=== PATIENT | male | born 1990 | race Caucasian/White ===

== ENCOUNTER 2024-07-21 07:03 | Emergency (ER) | payer OTHER, SELFPAY ==
[2024-07-21] VITALS (11 sets, daily range): BP systolic 114–137; BP diastolic 53–91; PULSE 66–103; RESP 16–20; TEMP 36.6–37; O2SAT 97–100; BMI 28.6
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
[2024-07-21 07:26] LABS: Add Manual Diff / Slide Review NO; Basophils Absolute Auto 0 /uL (0-100); Basophils Percent Auto 0.9 % (0-2); Eosinophils Absolute Auto 200 /uL (0-450); Hematocrit 39.4 % (36-46); Hemoglobin 12.9 g/dL (12.0-16.0); Lymphocytes Absolute Auto 1700 /uL (1100-4500); Lymphocytes Percent Auto 29.9 % (25-40); Mean Corpuscular HGB Conc 32.7 % (30-36); Mean Corpuscular Hemoglobin 27.2 PG (26-34); Mean Corpuscular Volume 83.2 fL (80-100); Monocytes Absolute Auto 400 /uL (0-900); Monocytes Percent Auto 7.5 % (3-14); Neutrophils Absolute Auto 3300 /uL (1500-7000); Neutrophils Percent Auto 58.7 % (50-75); Platelet Count 261 X10^3/uL (150-400); Red Blood Cell Count 4.74 X10^6/uL (4.0-5.2); Red Cell Distribution Width 16.1 % (11.6-14.8); White Blood Cell Count 5.6 X10^3/uL (4.5-11.0)
[2024-07-21] MEDS: HYDROMORPHONE 0.5 MG INJ IV ×2 (07:28→08:32)
[2024-07-21 07:34] LABS: Prothrombin Time 11.4 SECONDS (9.4-12.5)
[2024-07-21 07:41] LABS: Alanine Aminotransferase 27 IU/L (<35); Albumin 4.4 g/dL (3.5-5.0); Albumin Globulin Ratio 1.6 (1.0-2.8); Alkaline Phosphatase 77 U/L (38-126); Aspartate Aminotransferase 32 IU/L (14-36); BUN Creatinine Ratio 26.4 (6-22); Bilirubin Total 0.7 mg/dL (0.2-1.3); Blood Urea Nitrogen 19 mg/dL (7-17); Calcium 8.8 mg/dL (8.4-10.2); Carbon Dioxide 25 mmol/L (22-32); Chloride 104 mmol/L (98-107); Estimated Glomerular Filt Rate > 60 mL/min (>60); Ethanol (ETOH) < 10 mg/dL; Globulin 2.8 g/dL (1.7-4.1); Glucose 115 mg/dL (70-100); HEMOLYSIS 29 (0-50); Lipase 51 U/L (23-300); Potassium 3.8 mmol/L (3.4-5.1); Sodium 136 mmol/L (137-145); Total Protein 7.2 g/dL (6.3-8.2)
[2024-07-21 07:45] LABS: PTT Partial Thromboplastin Tim 33 SECONDS (25.1-36.5)
[2024-07-21] MEDS: OXYCODONE/ACETAMINOPHEN 5/325 TABLET 1 TAB PO (10:01)
[2024-07-21] MEDS: KETOROLAC 30 MG/ML VIAL 15 MG IV (10:02)
--- NOTE | 2024-07-21 10:08 | PC.NURSE ---
Addendum entered by Sara Sam R.N. 07/21/24 10:25: Pt denies HI/SI at this time. Original Note: Registration attempted to ask pt personal demographic information like name, preferred name, sex and address. Pt became evasive and defensive and stated that it didn't matter if they identified as male or female. RN explained to pt that we support pt's gender identity, but it is also necessary to know pt's sex in order to provide the most culturally appropriate/competent care. Pt apologized for becoming angry with staff members and looked off into distance and began speaking to someone that was not currently in the room. RN asked pt if they were seeing or hearing things. Pt endorsed auditory hallucinations and reported that they hear them often. Pt expresses concerns about being able to care for self after dc due to anxiety and depression issues and is open to inpatient or outpatient treatment for mental health issues. Pt overall demeanour anxious and wary of ED staff. TERRAZZO POLISHER consult ordered & tray from dietary ordered. Pt requested that we wait to place walking boot until just prior to dc. Declined sutures on nose lac and requested glue instead. Dr Banks aware.
[2024-07-21] MEDS: BACITRACIN OINT 0.9 GM PCKT 1 APPLIC TOP (12:14)
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
== END 2024-07-21 12:57 | disposition home or self-care (01) ==
PROVIDERS: Emergency Provider Emergency Medicine
DX: S01.21XA Laceration without foreign body of nose, initial encounter (principal); S00.81XA Abrasion of other part of head, initial encounter; S93.401A Sprain of unspecified ligament of right ankle, initial encounter; V89.9XXA Person injured in unspecified vehicle accident, initial encounter; S30.811A Abrasion of abdominal wall, initial encounter; S00.31XA Abrasion of nose, initial encounter
CPT/HCPCS: 36415; 70450; 71275; 72125; 73610; 74177; 80053; 80320; 83690; 85025; 85610; 85730; 96374; 96375; 96376; 99285; 99291; G0390; J1171; J1885; Q9967

== ENCOUNTER 2024-07-21 21:20 | Emergency (ER) | payer OTHER, SELFPAY ==
[2024-07-21 21:33] VITALS: BP 147/66; PULSE 81; RESP 18; TEMP 36.6; O2SAT 97
--- NOTE | 2024-07-21 21:46 | PC.NURSE ---
Printed resources for patient given: pamphlet for Care Crisis, Housing Resources, and Community Resources. Pt states that she does not have a stable phone but wanted to have follow up. At this time with limited contact information patient will be given printed material that includes phone numbers for her to follow up with.
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
--- NOTE | 2024-07-21 22:22 | PC.NURSE ---
Pt instructed to wash hands with soap and water then massage soap and water with finger into wound on nose. Pt states Is this some kind of ER self service thing or something? Explained to patient that this is the best way to clean the wound and she would be doing it at home, there is no reason for someone to do it for her here.
--- NOTE | 2024-07-21 22:25 | PC.NURSE ---
Pt continues to stay in Ed stretcher not getting up to wash nose as instructed.
--- NOTE | 2024-07-21 22:26 | PC.NURSE ---
Pt continues to stay in ED stretcher not getting up to wash wound, closes eyes and becomes slow to arouse as when RN first entered exam room.
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
== END 2024-07-21 22:43 | disposition home or self-care (01) ==
PROVIDERS: Emergency Provider Emergency Medicine
DX: S01.21XA Laceration without foreign body of nose, initial encounter (principal); V09.9XXA Pedestrian injured in unspecified transport accident, initial encounter; F10.129 Alcohol abuse with intoxication, unspecified
CPT/HCPCS: 99281; 99283

== ENCOUNTER 2024-07-28 09:50 | Emergency (ER) | payer OTHER, MEDICAID, SELFPAY ==
[2024-07-28 10:03] VITALS: BP 136/66; PULSE 87; RESP 14; TEMP 36.6; O2SAT 98; BMI 24.3
--- NOTE | 2024-07-28 11:21 | ED.RECABL ---
HPI - Recheck/Abnormal Lab/Rx <Jaja Gunter PA-C - Last Filed: 07/28/24 13:18> General Chief Complaint: Recheck/Abnormal Lab/Rx Stated Complaint: needs medication Time Seen by Provider: 07/28/24 11:21 Mode of arrival: Ambulatory History of Present Illness HPI narrative: Keyanna Lopez is a 34 year old male to female transgender patient who presents to the emergency room for medication refills. Patient states she is new to the area and no longer has a local primary care provider. She has been getting prescribed estradiol 2 mg (4 mg p.o. b.i.d.) and spironolactone 100 mg (200 mg b.i.d.) from her doctor in [place] at [facility]. Patient states she has been these medications for about 7 years. She ran out of them about 1-2 weeks ago and is looking for refills until she can find a doctor in the area. She has no other concerns. Related Data Previous Rx's Medication Instructions Recorded estradiol 2 mg tablet 4 mg (2 x 2 mg) PO BID 30 days 07/28/24 #120 tabs spironolactone 100 mg tablet 200 mg (2 x 100 mg) PO BID 30 days 07/28/24 #120 tabs Allergies Allergy/AdvReac Type Severity Reaction Status Date / Time No Known Drug Allergies Allergy Verified 07/28/24 10:03 Review of Systems <Jaja Gunter PA-C - Last Filed: 07/28/24 13:18> Review of Systems ROS Unobtainable: All systems reviewed & are unremarkable except as noted in HPI and below Patient History <Jaja Gunter PA-C - Last Filed: 07/28/24 13:18> Medical History Transgender female Social History Smoking Status: Current every day smoker Smoking Status: Current every day smoker tobacco type: cigarettes alcohol intake frequency: a few times a month Exam <Jaja Gunter PA-C - Last Filed: 07/28/24 13:18> Narrative Exam Narrative: GENERAL: 34 year old patient appears stated age. Well-developed patient, in no acute distress. HEAD: Atraumatic. Normocephalic. EYES: Extraocular motions intact. No scleral icterus. No injection or drainage. ENT: Nose with scabbing on left side of bridge. NECK: Trachea midline. Cervical ROM intact. CARDIOVASCULAR: Regular rate and rhythm. RESPIRATORY: ?Nonlabored respirations. ?Speaking in clear, full sentences. ?Clear to auscultation. Breath sounds equal bilaterally. No wheezes, rales, or rhonchi. ? EXTREMITIES: No edema NEURO: AOx3. ?Clear speech. ?Moves all 4 extremities appropriately. Initial Vital Signs Initial Vital Signs: Vital Signs Temperature 97.8 F 07/28/24 10:03 Pulse Rate 87 07/28/24 10:03 Respiratory Rate 14 07/28/24 10:03 Blood Pressure 136/66 07/28/24 10:03 Pulse Oximetry 98 07/28/24 10:03 Oxygen Delivery Method Room Air 07/28/24 10:03 <Laurent Wall DO - Last Filed: 07/28/24 13:27> Initial Vital Signs Initial Vital Signs: Vital Signs Temperature 97.8 F 07/28/24 10:03 Pulse Rate 87 07/28/24 10:03 Respiratory Rate 14 07/28/24 10:03 Blood Pressure 136/66 07/28/24 10:03 Pulse Oximetry 98 07/28/24 10:03 Oxygen Delivery Method Room Air 07/28/24 10:03 Course <Jaja Gunter PA-C - Last Filed: 07/28/24 13:18> Orders Ordered: ED Orders 07/28/24 10:07 Consult to [facility] [place] - Amusement Ride Operator Stat Vital Signs Vital signs: Vital Signs - 8 hr 07/28/24 10:03 Temperature 97.8 F Pulse Rate 87 Respiratory Rate 14 Blood Pressure 136/66 Pulse Oximetry 98 Oxygen Delivery Method Room Air <Laurent Wall DO - Last Filed: 07/28/24 13:27> Orders Ordered: ED Orders 07/28/24 10:07 Consult to [facility] [place] - Amusement Ride Operator Stat Vital Signs Vital signs: Vital Signs - 8 hr 07/28/24 10:03 Temperature 97.8 F Pulse Rate 87 Respiratory Rate 14 Blood Pressure 136/66 Pulse Oximetry 98 Oxygen Delivery Method Room Air MDM - Recheck/Abnormal Lab/Rx <Jaja Gunter PA-C - Last Filed: 07/28/24 13:18> MDM Narrative Medical decision making narrative: 34 year old male to female transgender patient who presents to the emergency room for medication refills. Differential diagnosis includes but is not limited to medication refill, etc. On exam the patient is in no acute distress, nontoxic-appearing, all vital signs within normal limits. Confirmed with the patient's pharmacy history her requested prescriptions and that she likely just ran out of her last refill. She is requesting refill of estradiol and spironolactone. Doses of these medications confirmed with the patient and pharmacy history. We will send 1 month refill to local pharmacy, provide patient with local PCP follow up. Patient understands it is not appropriate to continue coming to the ER for medication refills. Patient verbalized understanding of all information stable for discharge. Discharge Plan Departure Patient Disposition: Home Clinical Impression: Encounter for medication refill Activity Restrictions/Additional Instructions: Today I have refilled your estradiol and spironolactone. It is very important to follow up with a local primary care doctor as the emergency room can not continue providing refills of medications. Your prescriptions have been sent to the [facility] and had a [facility]. Please follow up with your primary care doctor within the next 2-3 days for ER follow-up. (If you do not have a PCP you can call [phone]. ?to schedule an appointment with an [facility] Primary Care Provider) IF YOU DEVELOP ANY NEW OR WORSENING SYMPTOMS, RETURN TO THE ER! Please read the attached instructions, they highlight more specific treatments and interventions for you at home. Thank you for letting me participate in your care, Jaja Gunter PA-C Prescriptions: New estradiol 2 mg tablet 4 mg PO BID 30 Days Qty: 120 0RF spironolactone 100 mg tablet 200 mg PO BID 30 Days Qty: 120 0RF Referrals: Miscellaneous,Doctor, MD [Primary Care Provider] - Stand Alone Forms: Patient Portal/API/Survey ED Sign-out <Laurent Wall, DO - Last Filed: 07/28/24 13:27> Cosign ED Attending Cosignature Attestation: Dr Wall Co-Sign Statement: I was available for consultation during this patient's emergency department visit. This chart is signed by myself for administrative purposes only. I did not have direct contact with this patient during this visit. They were seen independently by the APC.
== END 2024-07-28 12:26 | disposition home or self-care (01) ==
PROVIDERS: Emergency Provider Physician Assistant
DX: Z76.0 Encounter for issue of repeat prescription (principal)
CPT/HCPCS: 99281

== ENCOUNTER 2024-08-06 17:41 | Emergency (ER) | payer OTHER, SELFPAY ==
[2024-08-06 17:50] VITALS: BP 149/80; PULSE 84; RESP 16; TEMP 36.7; O2SAT 98; BMI 29.5
== END 2024-08-06 18:37 | disposition left against medical advice (07) ==
PROVIDERS: Emergency Provider Emergency Medicine
DX: M21.969 Unspecified acquired deformity of unspecified lower leg (principal)
CPT/HCPCS: 99281

== ENCOUNTER 2024-08-10 15:17 | Emergency (ER) | payer OTHER, SELFPAY ==
[2024-08-10 15:35] VITALS: BP 151/98; PULSE 85; RESP 20; TEMP 36.9; O2SAT 98; BMI 24.3
[2024-08-10 16:13] LABS: Add Manual Diff / Slide Review NO; Basophils Absolute Auto 0 /uL (0-100); Basophils Percent Auto 0.6 % (0-2); Eosinophils Absolute Auto 100 /uL (0-450); Eosinophils Percent Auto 1.1 % (2-4); Hematocrit 38.8 % (36-46); Hemoglobin 12.8 g/dL (12.0-16.0); Lymphocytes Absolute Auto 1800 /uL (1100-4500); Lymphocytes Percent Auto 25.5 % (25-40); Mean Corpuscular HGB Conc 33.1 % (30-36); Mean Corpuscular Volume 84.4 fL (80-100); Monocytes Absolute Auto 600 /uL (0-900); Monocytes Percent Auto 7.8 % (3-14); Neutrophils Absolute Auto 4700 /uL (1500-7000); Platelet Count 287 X10^3/uL (150-400); Red Blood Cell Count 4.59 X10^6/uL (4.0-5.2); Red Cell Distribution Width 15.3 % (11.6-14.8); White Blood Cell Count 7.2 X10^3/uL (4.5-11.0)
[2024-08-10 16:17] LABS: COVID19 -Nasal RAPID Negative (Negative)
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
[2024-08-10 16:33] LABS: Acetaminophen < 10 ug/mL (10-30); Alanine Aminotransferase 21 IU/L (<35); Albumin 4.3 g/dL (3.5-5.0); Albumin Globulin Ratio 1.6 (1.0-2.8); Alkaline Phosphatase 66 U/L (38-126); Aspartate Aminotransferase 29 IU/L (14-36); BUN Creatinine Ratio 21.7 (6-22); Bilirubin Total 0.4 mg/dL (0.2-1.3); Blood Urea Nitrogen 18 mg/dL (7-17); Calcium 8.9 mg/dL (8.4-10.2); Carbon Dioxide 23 mmol/L (22-32); Chloride 105 mmol/L (98-107); Estimated Glomerular Filt Rate > 60 mL/min (>60); Ethanol (ETOH) < 10 mg/dL; Globulin 2.7 g/dL (1.7-4.1); Glucose 95 mg/dL (70-100); HEMOLYSIS < 15 (0-50); Potassium 4.2 mmol/L (3.4-5.1); Salicylate < 1.0 mg/dL (<20); Sodium 136 mmol/L (137-145)
[2024-08-10 16:47] LABS: Ur Creatinine Normal (Normal); Ur Specific Gravity Normal (Normal); Urine Cocaine Negative (Negative); Urine Opiates Positive (Negative); Urine THC Negative (Negative); Urine pH Normal (Normal)
[2024-08-10 16:48] LABS: Urine Amphetamines Negative (Negative); Urine Barbiturates Negative (Negative); Urine Benzodiazepines Negative (Negative); Urine MDMA Negative (Negative); Urine Methadone Negative (Negative); Urine Methamphetamines Negative (Negative); Urine Oxycodone Negative (Negative); Urine Phencyclidine Negative (Negative); Urine Tricyclic Antidepressant Negative (Negative)
[2024-08-10 16:49] LABS: Free T4, Direct Thyroxine 1.03 ng/dL (0.78-2.19)
[2024-08-10 17:03] LABS: Thyroid Stimulating Hormone 1.05 uIU/mL (0.47-4.68)
--- NOTE | 2024-08-10 17:09 | CM.SWNOTE ---
Addendum entered by Maria Esther Cormier 08/10/24 18:26: ED BOAT BUILDER AND REPAIRER Note BOAT BUILDER AND REPAIRER receives call from [facility], it is reported that patient is accepted by [facility], received call from Jennifer. It is reported that patient can arrive any time, Nurse to Nurse: [phone]. BOAT BUILDER AND REPAIRER calls [facility] and sets up BLS transport for 1909. BOAT BUILDER AND REPAIRER informs patient of this and patient indicates agreement and understanding. Plan: patient to transfer to [facility] via S this evening VIN Liang Original Note: ED BOAT BUILDER AND REPAIRER Note Patient endorses preference not to go to [facility] and to go to [facility]. BOAT BUILDER AND REPAIRER calls [facility], it is reported that they do not have beds. BOAT BUILDER AND REPAIRER reviews this with patient and endorses that [place]. BOAT BUILDER AND REPAIRER calls [facility], it is reported that they have beds. BOAT BUILDER AND REPAIRER to fax clinicals for review when patient is medically clear. VIN Liang
--- NOTE | 2024-08-10 17:32 | ED.PSYCH ---
HPI - Psych <Jaja Gunter PA-C - Last Filed: 08/10/24 18:53> General Chief Complaint: Psychiatric Symptoms Stated Complaint: needs psych help Time Seen by Provider: 08/10/24 17:32 Source: patient Mode of arrival: Ambulatory History of Present Illness HPI Narrative: Ms. Law Vieira) is a 34-year-old transgender female (male to female) on estradiol and spironolactone with a past medical history of reported bipolar disorder who presents to the emergency department for suicidal ideation. Patient states today she had and plans of harming herself by jumping in front of a car or staying outside so she would freeze to . Patient denies any homicidal ideations. She denies any medication or drug use prior to arrival except for her daily estradiol and spironolactone. Denies any attempted self-harm or suicide prior to arrival. She came to the ER to seek help to prevent her from harming herself. She denies any pain or flu-like symptoms at this time. Admits to vaping but denies drug or alcohol use. Related Data Previous Rx's Medication Instructions Recorded estradiol 2 mg tablet 4 mg (2 x 2 mg) PO BID 30 days 07/28/24 #120 tabs spironolactone 100 mg tablet 200 mg (2 x 100 mg) PO BID 30 days 07/28/24 #120 tabs Allergies Allergy/AdvReac Type Severity Reaction Status Date / Time No Known Drug Allergies Allergy Verified 07/28/24 10:03 Review of Systems <Jaja Gunter PA-C - Last Filed: 08/10/24 18:53> Review of Systems ROS Unobtainable: All systems reviewed & are unremarkable except as noted in HPI and below Patient History <Jaja Gunter PA-C - Last Filed: 08/10/24 18:53> Medical History Transgender female Social History Smoking Status: Current every day smoker Smoking Status: Current every day smoker tobacco type: vaping alcohol intake frequency: a few times a month Exam <Jaja Gunter PA-C - Last Filed: 08/10/24 18:53> Narrative Exam Narrative: GENERAL: 34 year old patient appears stated age. Well-developed patient, in no acute distress. HEAD: Atraumatic. Normocephalic. NECK: Trachea midline. Cervical ROM intact. CARDIOVASCULAR: Regular rate and rhythm. RESPIRATORY: ?Nonlabored respirations. ?Speaking in clear, full sentences. ?Clear to auscultation. Breath sounds equal bilaterally. No wheezes, rales, or rhonchi. ? EXTREMITIES: No edema or joint tenderness. NEURO: AOx3. ?Clear speech. ?Moves all 4 extremities appropriately. MENTAL STATUS: ADMITS TO SUICIDAL IDEATION AND PLAN. SKIN: No rash or erythema of visible areas Initial Vital Signs Initial Vital Signs: Vital Signs Temperature 98.4 F 08/10/24 15:35 Pulse Rate 85 08/10/24 15:35 Respiratory Rate 20 08/10/24 15:35 Blood Pressure 151/98 H 08/10/24 15:35 Pulse Oximetry 98 08/10/24 15:35 Oxygen Delivery Method Room Air 08/10/24 15:35 <Isacc Patrick MD - Last Filed: 08/10/24 20:50> Initial Vital Signs Initial Vital Signs: Vital Signs Temperature 98.4 F 08/10/24 15:35 Pulse Rate 85 08/10/24 15:35 Respiratory Rate 20 08/10/24 15:35 Blood Pressure 151/98 H 08/10/24 15:35 Pulse Oximetry 98 08/10/24 15:35 Oxygen Delivery Method Room Air 08/10/24 15:35 Course <Jaja Gunter PA-C - Last Filed: 08/10/24 18:53> Orders Ordered: ED Orders 08/10/24 15:42 Consult to [employer] - [employer] Stat 08/10/24 15:50 Urine Drug Screen, Rapid Stat 08/10/24 15:55 COVID19 -Nasal RAPID Stat 08/10/24 16:03 Acetaminophen Stat Complete Blood Count AUTO DIFF Stat Comprehensive Metabolic Panel Stat Ethanol (ETOH) Stat Free T4, Direct Thyroxine Stat Salicylate Stat Thyroid Stimulating Hormone Stat Vital Signs Vital signs: Vital Signs - 8 hr 08/10/24 15:35 08/10/24 19:08 Temperature 98.4 F 98.9 F Pulse Rate 85 66 Respiratory Rate 20 14 Blood Pressure 151/98 H 107/58 L Pulse Oximetry 98 98 Oxygen Delivery Method Room Air <Isacc Patrick MD - Last Filed: 08/10/24 20:50> Orders Ordered: ED Orders 08/10/24 15:42 [place] [facility] [place] [employer] Stat 08/10/24 15:50 Urine Drug Screen, Rapid Stat 08/10/24 15:55 COVID19 -Nasal RAPID Stat 08/10/24 16:03 Acetaminophen Stat Complete Blood Count AUTO DIFF Stat Comprehensive Metabolic Panel Stat Ethanol (ETOH) Stat Free T4, Direct Thyroxine Stat Salicylate Stat Thyroid Stimulating Hormone Stat Vital Signs Vital signs: Vital Signs - 8 hr 08/10/24 15:35 08/10/24 19:08 Temperature 98.4 F 98.9 F Pulse Rate 85 66 Respiratory Rate 20 14 Blood Pressure 151/98 H 107/58 L Pulse Oximetry 98 98 Oxygen Delivery Method Room Air MDM - Psych <Jaja Gunter PA-C - Last Filed: 08/10/24 18:53> Medical Records Attestation: I reviewed the patient's medical records. Lab Data 08/10/24 16:03 08/10/24 16:03 Labs: Lab Results 08/10/24 08/10/24 08/10/24 Range/Units 15:50 15:55 16:03 WBC 7.2 (4.5-11.0) X10^3/uL RBC 4.59 (4.0-5.2) X10^6/uL Hgb 12.8 (12.0-16.0) g/dL Hct 38.8 (36-46) % MCV 84.4 (80-100) fL MCH 28.0 (26-34) PG MCHC 33.1 (30-36) % RDW 15.3 H (11.6-14.8) % Plt Count 287 (150-400) X10^3/uL Neut % (Auto) 65.0 (50-75) % Lymph % (Auto) 25.5 (25-40) % [place] % (Auto) 7.8 (3-14) % Eos % (Auto) 1.1 L (2-4) % Baso % (Auto) 0.6 (0-2) % Neut # (Auto) 4700 (5965-3901) /uL Lymph # (Auto) 1800 (3729-6941) /uL [place] # (Auto) 600 (0-900) /uL Eos # (Auto) 100 (0-450) /uL Baso # (Auto) 0 (0-100) /uL Sodium 136 L (137-145) mmol/L Potassium 4.2 (3.4-5.1) mmol/L Chloride 105 (98-107) mmol/L Carbon Dioxide 23 (22-32) mmol/L BUN 18 H (7-17) mg/dL Creatinine 0.83 (0.52-1.04) mg/dL Estimated GFR > 60 (>60) mL/min BUN/Creatinine Ratio 21.7 (6-22) Glucose 95 (70-100) mg/dL Calcium 8.9 (8.4-10.2) mg/dL Total Bilirubin 0.4 (0.2-1.3) mg/dL AST 29 (14-36) IU/L ALT 21 (<35) IU/L Alkaline Phosphatase 66 (38-126) U/L Total Protein 7.0 (6.3-8.2) g/dL Albumin 4.3 (3.5-5.0) g/dL Globulin 2.7 (1.7-4.1) g/dL Albumin/Globulin Ratio 1.6 (1.0-2.8) TSH 1.05 (0.47-4.68) uIU/mL Free T4 1.03 (0.78-2.19) ng/dL Salicylates < 1.0 (<20) mg/dL U Opiates 300ng/mL cut Positive H (Negative) Ur Oxycodone Screen Negative (Negative) Urine Methadone Screen Negative (Negative) Acetaminophen < 10 (10-30) ug/mL Ur Barbiturates Screen Negative (Negative) U Tricyclic Antidepress Negative (Negative) Ur Phencyclidine Scrn Negative (Negative) Ur Amphetamines Screen Negative (Negative) U Methamphetamines Scrn Negative (Negative) Ur MDMA Scrn (Ecstasy) Negative (Negative) U Benzodiazepines Scrn Negative (Negative) Urine Cocaine Screen Negative (Negative) U Marijuana (THC) Screen Negative (Negative) Urine pH Normal (Normal) Urine Specific [place] Normal (Normal) Ethyl Alcohol < 10 ( - 10) mg/dL Ur Creatinine Normal (Normal) SARS-CoV-2 (PCR) Negative (Negative) Point of Care Testing Test Results Negative Urine Dip Bedside Urine Glucose Negative Bedside Urine Bilirubin - Negative Bedside Urine Ketone +/- 5 Urine Specific [place] 1.020 Bedside Urine Occult Blood - Negative Bedside Urine pH 6 Bedside Urine Protein - Negative Bedside Urine Urobilinogen - Negative Bedside Urine Nitrite - Negative Bedside Urine Leukocytes - Negative Esterase MDM Narrative Medical decision making narrative: 34-year-old transgender female (male to female) on estradiol and spironolactone with a past medical history of reported bipolar disorder who presents to the emergency department for suicidal ideation. DIFFERENTIAL DIAGNOSIS INCLUDES BUT IS NOT LIMITED TO suicidal ideation, depression, anxiety, psychosis, etc. On exam patient is in no acute distress, nontoxic appearing, vital signs appropriate. She is admitting to suicidal ideation with plan but did not attempt any self-harm. She is agreeing to voluntary admission for mental health evaluation. She has not aggressive at this time. Lungs clear to auscultation bilaterally. No apparent medical problem. We will obtain baseline psychiatry clearance workup. Labs reveal normal WBC count 7.2 hemoglobin 12.8 hematocrit 38.8. Sodium 136. BUN 18, creatinine 0.83. Potassium 4.2. Tox screen is positive for opiates. Patient is medically cleared and would benefit from inpatient psychiatric evaluation. Patient is agreeable to this plan. Patient is stable for transfer to mental health facility at this time. Risks and benefits of transfer discussed with the patient and she is agreeable. <Isacc Patrick MD - Last Filed: 08/10/24 20:50> Lab Data Labs: Lab Results 08/10/24 08/10/24 08/10/24 Range/Units 15:50 15:55 16:03 WBC 7.2 (4.5-11.0) X10^3/uL RBC 4.59 (4.0-5.2) X10^6/uL Hgb 12.8 (12.0-16.0) g/dL Hct 38.8 (36-46) % MCV 84.4 (80-100) fL MCH 28.0 (26-34) PG MCHC 33.1 (30-36) % RDW 15.3 H (11.6-14.8) % Plt Count 287 (150-400) X10^3/uL Neut % (Auto) 65.0 (50-75) % Lymph % (Auto) 25.5 (25-40) % [place] % (Auto) 7.8 (3-14) % Eos % (Auto) 1.1 L (2-4) % Baso % (Auto) 0.6 (0-2) % Neut # (Auto) 4700 (1789-8339) /uL Lymph # (Auto) 1800 (7952-2127) /uL [place] # (Auto) 600 (0-900) /uL Eos # (Auto) 100 (0-450) /uL Baso # (Auto) 0 (0-100) /uL Sodium 136 L (137-145) mmol/L Potassium 4.2 (3.4-5.1) mmol/L Chloride 105 (98-107) mmol/L Carbon Dioxide 23 (22-32) mmol/L BUN 18 H (7-17) mg/dL Creatinine 0.83 (0.52-1.04) mg/dL Estimated GFR > 60 (>60) mL/min BUN/Creatinine Ratio 21.7 (6-22) Glucose 95 (70-100) mg/dL Calcium 8.9 (8.4-10.2) mg/dL Total Bilirubin 0.4 (0.2-1.3) mg/dL AST 29 (14-36) IU/L ALT 21 (<35) IU/L Alkaline Phosphatase 66 (38-126) U/L Total Protein 7.0 (6.3-8.2) g/dL Albumin 4.3 (3.5-5.0) g/dL Globulin 2.7 (1.7-4.1) g/dL Albumin/Globulin Ratio 1.6 (1.0-2.8) TSH 1.05 (0.47-4.68) uIU/mL Free T4 1.03 (0.78-2.19) ng/dL Salicylates < 1.0 (<20) mg/dL U Opiates 300ng/mL cut Positive H (Negative) Ur Oxycodone Screen Negative (Negative) Urine Methadone Screen Negative (Negative) Acetaminophen < 10 (10-30) ug/mL Ur Barbiturates Screen Negative (Negative) U Tricyclic Antidepress Negative (Negative) Ur Phencyclidine Scrn Negative (Negative) Ur Amphetamines Screen Negative (Negative) U Methamphetamines Scrn Negative (Negative) Ur MDMA Scrn (Ecstasy) Negative (Negative) U Benzodiazepines Scrn Negative (Negative) Urine Cocaine Screen Negative (Negative) U Marijuana (THC) Screen Negative (Negative) Urine pH Normal (Normal) Urine Specific [place] Normal (Normal) Ethyl Alcohol < 10 ( - 10) mg/dL Ur Creatinine Normal (Normal) SARS-CoV-2 (PCR) Negative (Negative) Point of Care Testing Test Results Negative Urine Dip Bedside Urine Glucose Negative Bedside Urine Bilirubin - Negative Bedside Urine Ketone +/- 5 Urine Specific [place] 1.020 Bedside Urine Occult Blood - Negative Bedside Urine pH 6 Bedside Urine Protein - Negative Bedside Urine Urobilinogen - Negative Bedside Urine Nitrite - Negative Bedside Urine Leukocytes - Negative Esterase Discharge Plan Departure Patient Disposition: Xfer Psychiatric Hosp Clinical Impression: Suicidal ideation Prescriptions: No Action estradiol 2 mg tablet 4 mg PO BID 30 Days Qty: 120 0RF spironolactone 100 mg tablet 200 mg PO BID 30 Days Qty: 120 0RF Referrals: Miscellaneous,DoctorMD [Primary Care Provider] - ED Sign-out <Isacc Patrick MD - Last Filed: 08/10/24 20:50> Cosign ED Attending Cosignature Attestation: I was immediately available in the department for consultation. This documentation has been reviewed and I agree with assessment and plan. Supervised by Isacc Patrick MD
[2024-08-10 19:08] VITALS: BP 107/58; PULSE 66; RESP 14; TEMP 37.2; O2SAT 98
== END 2024-08-10 19:24 ==
PROVIDERS: Emergency Medicine; Emergency Provider Physician Assistant
DX: R45.851 Suicidal ideations (principal); F64.0 Transsexualism
CPT/HCPCS: 80053; 80305; 80320; 80329; 81003; 81025; 84439; 84443; 85025; 87635; 99284; 99285; G0480

== ENCOUNTER 2024-08-23 20:27 | Emergency (ER) | payer OTHER, SELFPAY ==
[2024-08-23 20:48] VITALS: BP 138/75; PULSE 72; RESP 18; TEMP 36.4; O2SAT 96
[2024-08-23 21:28] LABS: Add Manual Diff / Slide Review NO; Basophils Absolute Auto 100 /uL (0-100); Basophils Percent Auto 0.8 % (0-2); Eosinophils Absolute Auto 100 /uL (0-450); Eosinophils Percent Auto 1.4 % (2-4); Hematocrit 39.1 % (36-46); Hemoglobin 13.1 g/dL (12.0-16.0); Lymphocytes Absolute Auto 2100 /uL (1100-4500); Lymphocytes Percent Auto 25.4 % (25-40); Mean Corpuscular HGB Conc 33.4 % (30-36); Mean Corpuscular Hemoglobin 27.9 PG (26-34); Mean Corpuscular Volume 83.4 fL (80-100); Monocytes Absolute Auto 400 /uL (0-900); Monocytes Percent Auto 4.3 % (3-14); Neutrophils Absolute Auto 5600 /uL (1500-7000); Neutrophils Percent Auto 68.1 % (50-75); Platelet Count 328 X10^3/uL (150-400); Red Blood Cell Count 4.69 X10^6/uL (4.0-5.2); Red Cell Distribution Width 15.2 % (11.6-14.8); White Blood Cell Count 8.2 X10^3/uL (4.5-11.0)
--- NOTE | 2024-08-23 21:35 | EKG_ITS ---
[place] [id number] [place] [id number] Test Date: 2024-08-23 Pat Name: Keyanna Lopez Department: [facility] Room: Gender: Female [employer] Crewman: ANDERSON MAST : 1990 Requested By: Order Number: [id number] Reading MD: Lasha Edouard MD Measurements Intervals [place] Rate: 71 P: 53 WI: 166 QRS: 49 QRSD: 90 T: 47 QT: 442 QTc: 480 Interpretive Statements Normal sinus rhythm Prolonged QT Electronically Signed On 08-24-2024 7:48:37 PST by Lasha Edouard MD
[2024-08-23 21:41] LABS: Acetaminophen < 10 ug/mL (10-30); Alanine Aminotransferase 20 IU/L (<35); Albumin 4.5 g/dL (3.5-5.0); Albumin Globulin Ratio 1.5 (1.0-2.8); Alkaline Phosphatase 71 U/L (38-126); Aspartate Aminotransferase 26 IU/L (14-36); BUN Creatinine Ratio 16.3 (6-22); Bilirubin Total 0.2 mg/dL (0.2-1.3); Blood Urea Nitrogen 13 mg/dL (7-17); Carbon Dioxide 24 mmol/L (22-32); Chloride 106 mmol/L (98-107); Estimated Glomerular Filt Rate > 60 mL/min (>60); Ethanol (ETOH) < 10 mg/dL; Glucose 158 mg/dL (70-100); HEMOLYSIS < 15 (0-50); Potassium 3.6 mmol/L (3.4-5.1); Salicylate < 1.0 mg/dL (<20); Sodium 139 mmol/L (137-145); Total Protein 7.5 g/dL (6.3-8.2)
[2024-08-23 21:57] LABS: Free T4, Direct Thyroxine 0.84 ng/dL (0.78-2.19)
--- NOTE | 2024-08-23 22:05 | PC.NURSE ---
Patient here in department for suicidal ideation and reported homicidal ideation, the patient asks whether she needs to list the people I want to kill. Patient reports that they were at [facility] 4 days ago for intentional fentanyl overdose. Patient hears voices that are not there, when asked about the voices patient says I do not have schizoaffective disorder. This RN attempted to do suicide assessment but patient is quite tangential, gut feeling is high risk with the recent intentional overdose. patient requesting to go to sleep and have carmen kvng at this time
--- NOTE | 2024-08-23 22:08 | ED.PSYCH ---
HPI - Psych General Chief Complaint: Psychiatric Symptoms Stated Complaint: Suicidal and homicidal ideations Time Seen by Provider: 08/23/24 21:06 Source: patient Mode of arrival: Ambulatory History of Present Illness HPI Narrative: 34-year-old transgender female (male to female) on estradiol and spironolactone, prior history of bipolar disorder, prior episodes of suicidal ideation, complains of current suicidal ideation. Patient states that she has suicidal ideation but does not elaborate any specific plan. She was forthcoming in admitting to her recent visit non accidental opiate overdose at [facility] 08/20/2024. Denies use of fentanyl today. Denies use of alcohol. Does not elaborate any specific plan of self-harm but states that she is feeling suicidal. She would like to have psychiatric help, willing to stay for consultation. Related Data Previous Rx's Medication Instructions Recorded estradiol 2 mg tablet 4 mg (2 x 2 mg) PO BID 30 days 07/28/24 #120 tabs spironolactone 100 mg tablet 200 mg (2 x 100 mg) PO BID 30 days 07/28/24 #120 tabs Allergies Allergy/AdvReac Type Severity Reaction Status Date / Time No Known Drug Allergies Allergy Verified 07/28/24 10:03 Patient History Medical History Transgender female Social History Smoking Status: Current every day smoker Smoking Status: Current every day smoker tobacco type: smokeless tobacco alcohol intake frequency: a few times a month Exam Narrative Exam Narrative: GENERAL: Well-developed patient, in mild distress. HEAD: Atraumatic. Normocephalic. EYES: Pupils equal round and reactive. Extraocular motions intact. No scleral icterus. No injection or drainage. ENT: Nose without bleeding, purulent drainage. Throat without erythema, tonsillar hypertrophy or exudate. Airway patent. NECK: Trachea midline. Non tender CARDIOVASCULAR: Regular rate and rhythm without murmurs, gallops, or rubs. RESPIRATORY: Clear to auscultation. Breath sounds equal bilaterally. No wheezes, rales, or rhonchi. GASTROINTESTINAL: Abdomen soft, non-tender, nondistended. EXTREMITIES: No edema or joint tenderness. BACK: Nontender without deformity or crepitance. No flank tenderness. NEURO: AOx3. Motor functions grossly nonfocal SKIN: No rash or erythema of visible areas Initial Vital Signs Initial Vital Signs: Vital Signs Temperature 97.6 F 08/23/24 20:48 Pulse Rate 72 08/23/24 20:48 Respiratory Rate 18 08/23/24 20:48 Blood Pressure 138/75 08/23/24 20:48 Pulse Oximetry 96 08/23/24 20:48 Oxygen Delivery Method Room Air 08/23/24 20:48 Course Orders Ordered: ED Orders 08/23/24 21:06 Urine Drug Screen, Rapid Stat 08/24/24 06:09 Urinalysis and Microscopic Stat Vital Signs Vital signs: Vital Signs - 8 hr 08/23/24 23:52 Pulse Rate 58 L Respiratory Rate 20 Blood Pressure 101/53 L Pulse Oximetry 96 Oxygen Delivery Method Room Air MDM - Psych Lab Data Attestation: I reviewed the patient's lab results. Lab results narrative: White blood cell count 8200, hemoglobin 13.1, platelets adequate. Basic metabolic panel unremarkable. Glucose 158. Salicylates, acetaminophen, ethanol levels negative. Liver functions unremarkable. 08/23/24 21:18 08/23/24 21:18 Labs: Lab Results 08/23/24 08/24/24 08/24/24 Range/Units 21:18 06:09 06:09 WBC 8.2 (4.5-11.0) X10^3/uL RBC 4.69 (4.0-5.2) X10^6/uL Hgb 13.1 (12.0-16.0) g/dL Hct 39.1 (36-46) % MCV 83.4 (80-100) fL MCH 27.9 (26-34) PG MCHC 33.4 (30-36) % RDW 15.2 H (11.6-14.8) % Plt Count 328 (150-400) X10^3/uL Neut % (Auto) 68.1 (50-75) % Lymph % (Auto) 25.4 (25-40) % [place] % (Auto) 4.3 (3-14) % Eos % (Auto) 1.4 L (2-4) % Baso % (Auto) 0.8 (0-2) % Neut # (Auto) 5600 (7721-9997) /uL Lymph # (Auto) 2100 (6680-4830) /uL [place] # (Auto) 400 (0-900) /uL Eos # (Auto) 100 (0-450) /uL Baso # (Auto) 100 (0-100) /uL Sodium 139 (137-145) mmol/L Potassium 3.6 (3.4-5.1) mmol/L Chloride 106 (98-107) mmol/L Carbon Dioxide 24 (22-32) mmol/L BUN 13 (7-17) mg/dL Creatinine 0.80 (0.52-1.04) mg/dL Estimated GFR > 60 (>60) mL/min BUN/Creatinine Ratio 16.3 (6-22) Glucose 158 H (70-100) mg/dL Calcium 9.0 (8.4-10.2) mg/dL Total Bilirubin 0.2 (0.2-1.3) mg/dL AST 26 (14-36) IU/L ALT 20 (<35) IU/L Alkaline Phosphatase 71 (38-126) U/L Total Protein 7.5 (6.3-8.2) g/dL Albumin 4.5 (3.5-5.0) g/dL Globulin 3.0 (1.7-4.1) g/dL Albumin/Globulin Ratio 1.5 (1.0-2.8) TSH 0.730 D (0.47-4.68) uIU/mL Free T4 0.84 (0.78-2.19) ng/dL Urine Color Yellow Urine Appearance Clear Urine pH 5.5 Normal (4.5-8.0) Ur Specific [place] >=1.030 H (1.000-1.035) Urine Protein Negative (Negative) Urine Glucose (UA) Negative (Negative) g/dL Urine Ketones Trace H (NEGATIVE) Urine Occult Blood Negative (Negative) Urine Nitrate Negative (Negative) Urine Bilirubin Negative (NEGATIVE) Urine Urobilinogen 0.2 (0.2) E.U./dL Ur Leukocyte Esterase Negative (NEGATIVE) Urine RBC 0-1/hpf (0-5/HPF) Urine WBC 1-5/hpf (0-5/HPF) Ur Squamous Epith Cells 10-30 /hpf H (0-5/HPF) Calcium Oxalate Crystal Few H Urine Bacteria Moderate (10-30) H (None) Urine Mucus 1+ H (Negative) Ur Culture Indicated? Cult not indicated Vol Urine Centrifuged 10ml (spun) Salicylates < 1.0 (<20) mg/dL U Opiates 300ng/mL cut Negative (Negative) Ur Oxycodone Screen Negative (Negative) Urine Methadone Screen Negative (Negative) Acetaminophen < 10 (10-30) ug/mL Ur Barbiturates Screen Negative (Negative) U Tricyclic Antidepress Negative (Negative) Ur Phencyclidine Scrn Negative (Negative) Ur Amphetamines Screen Negative (Negative) U Methamphetamines Scrn Negative (Negative) Ur MDMA Scrn (Ecstasy) Negative (Negative) U Benzodiazepines Scrn Negative (Negative) Urine Cocaine Screen Negative (Negative) U Marijuana (THC) Screen Negative (Negative) Urine Specific [place] Normal (Normal) Ethyl Alcohol < 10 ( - 10) mg/dL Ur Creatinine Normal (Normal) ECG Data Attestation: I personally reviewed and interpreted this ECG as follows: Interpretation: 2135, normal sinus rhythm with rate of 71, no obvious ST segment elevation or depression changes. OH 166, QRS 90, QTC 480 noted. MDM Narrative Medical decision making narrative: *Name alert, patient has presented here with varied triage given names and sir names, all with same MR# [id number] and 89. Today she is going by triage name Keyanna Lopez, with preference to be called Giovanna. Transgender female (male to female) with history of bipolar disorder, prior suicidal ideation, recent opiate overdose visit [facility] 08/20/2024, having suicidal ideation, did not elaborate any specific plan but was not very forthcoming with recent suicidal ideation details. Prior fentanyl use, denies use since recent overdose 08/20/[address] [facility]. She would like to speak with [employer] when available. Screening laboratory study sent. Ethanol negative, salicylate/acetaminophen levels negative. Electrolytes unremarkable. manager of environmental services consult when available tomorrow morning. 0700, [facility] Dr. Oviedo Discharge Plan Departure Clinical Impression: Suicidal ideation Prescriptions: No Action estradiol 2 mg tablet 4 mg PO BID 30 Days Qty: 120 0RF spironolactone 100 mg tablet 200 mg PO BID 30 Days Qty: 120 0RF Referrals: Miscellaneous,Doctor, MD [Primary Care Provider] -
--- NOTE | 2024-08-23 23:04 | PC.NURSE ---
deferred assessment at this time, patient is resting with eyes closed and even respirations.
[2024-08-23 23:52] VITALS: BP 101/53; PULSE 58; RESP 20; O2SAT 96
[2024-08-24 06:54] LABS: Appearance Urine UA CLEAR; Bilirubin Urine UA NEGATIVE (NEGATIVE); Color Urine UA YELLOW; Glucose Urine UA NEGATIVE (Negative); Ketones Urine UA TRACE (NEGATIVE); Leukocyte Esterase Urine UA NEGATIVE (NEGATIVE); Nitrite Urine UA NEGATIVE (Negative); Occult Blood Urine UA NEGATIVE (Negative); Protein Urine UA NEGATIVE (Negative); Specific Gravity Urine UA >=1.030 (1.000-1.035); Urobilinogen Urine UA 0.2 E.U./dL (0.2)
[2024-08-24 06:56] LABS: pH Urine UA 5.5 (4.5-8.0)
[2024-08-24 07:00] LABS: Ur Creatinine Normal (Normal); Ur Specific Gravity Normal (Normal); Urine Amphetamines Negative (Negative); Urine Barbiturates Negative (Negative); Urine Benzodiazepines Negative (Negative); Urine Cocaine Negative (Negative); Urine MDMA Negative (Negative); Urine Methadone Negative (Negative); Urine Methamphetamines Negative (Negative); Urine Opiates Negative (Negative); Urine Oxycodone Negative (Negative); Urine Phencyclidine Negative (Negative); Urine THC Negative (Negative); Urine Tricyclic Antidepressant Negative (Negative); Urine pH Normal (Normal)
[2024-08-24 07:03] LABS: RBC Urine 0-1/HPF (0-5/HPF); Urine Volume 10mL (spun)
[2024-08-24 07:04] LABS: Bacteria Urine Moderate (10-30); Calcium Oxalate Crystals Urine Few; Mucus Urine 1+ (Negative); Squamous Epithelial Cell Urine 10-30 /HPF (0-5/HPF); WBC Urine 1-5/HPF (0-5/HPF)
[2024-08-24 07:05] LABS: Culture Indicated Urine Cult Not Indicated
[2024-08-24 09:27] VITALS: BP 125/66; PULSE 62; RESP 18; O2SAT 100
--- NOTE | 2024-08-24 09:48 | PC.NURSE ---
Pt alert and eating breakfast. A&Ox4, Pt states she feels better this morning. States she currently does not have any suicidal or homicidal thoughts. Pt willing to stay and talk with social work.
--- NOTE | 2024-08-24 11:10 | CM.SWNOTE ---
ED PAPERBACK MACHINE OPERATOR Assessment Note Patient is 34 y/o transgender female who goes by Giovanna (Patient previously went by the name Kim on 08/10/24). Patient presents to ED last night due to concern for SI and HI. Patient states she tried to kill herself with fentanyl 4 days ago and overdosed. Patient was at [facility] for this and discharged upon medical clearance. Patient has hx of Fentanyl use, Bipolar and Schizoaffective disorder. Patient presented to this ED on 08/10/24 seeking inpatient hospitalization due to concern for SI and crisis stabilization. Patient transferred to [facility]. Prior to entering room, PAPERBACK MACHINE OPERATOR hears patient laugh and converse with self, presenting with response to internal stimuli. ED staff report that patient has been sleeping since last night and has been doing that since this morning. PAPERBACK MACHINE OPERATOR enters room to meet with patient, patient presents as A/Ox4 with pressured speech, quiet speech, euthymic, elevated at times. Patient endorses she wants to discharge to go to her probation appt today. Patient states she is working with community court and states that they are going to find her housing through community action. 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 When asked about auditory and visual hallucinations, patient adamantly denies and states no Schizoaffective stuff. Patient endorses her safety to d/c to community and preference to d/c. It is the opinion of this PAPERBACK MACHINE OPERATOR that patient is safe to d/c home upon medical clearance. PAPERBACK MACHINE OPERATOR provides patient with outpatient [facility] resources and crisis contacts. PAPERBACK MACHINE OPERATOR reviews this with ED provider Dr. Oviedo who indicates agreement and understanding. Plan: Patient to d/c to home upon medical clearance, patient to f/u with outpatient resources provided. Maria Esther Cormier, SEO PROFESSIONAL
== END 2024-08-24 11:05 | disposition home or self-care (01) ==
PROVIDERS: Emergency Medicine; Emergency Provider Emergency Medicine
DX: R45.851 Suicidal ideations (principal); F64.0 Transsexualism; R07.9 Chest pain, unspecified
CPT/HCPCS: 36415; 80053; 80305; 80320; 80329; 81001; 84439; 84443; 85025; 93005; 93010; 99284; G0480